=== PATIENT | female | born 1985 ===

== ENCOUNTER 2021-11-01 11:51 | Emergency (ER) | payer SELFPAY ==
[2021-11-01] MEDS ORDERED: IBUPROFEN 600 MG TAB PO ONE (14:47)
--- NOTE | 2021-11-01 14:52 | Emergency Department Report ---
- General Chief Complaint: Dyspnea/Respdistress Stated Complaint: DICKINSON, FEVER, CHILLS, COUGH Time Seen by Provider: 11/01/21 14:27 Source: patient Mode of arrival: Ambulatory Limitations: No Limitations - History of Present Illness Initial Comments: 36-year-old female who denies any significant past medical history presents to the ER today with complaints of URI symptoms. Patient states her symptoms started yesterday. She reports fever 103 for which she took Tylenol. She reports generalized body aches, mild cough, mild sore throat, rhinorrhea nasal congestion. She reports no chest pain or shortness of breath, GI or symptoms. She denies any apparent ill contacts or recent travel. She has not had a COVID-19 vaccine or flu vaccine. She denies tobacco use. MD Complaint: fever, cough, sore throat, nasal congestion -: days(s) (1) - Related Data Allergies Allergy/AdvReac Type Severity Reaction Status Date / Time No Known Allergies Allergy Unverified 11/01/21 12:26 ED Review of Systems ROS: Stated complaint: DICKINSON, FEVER, CHILLS, COUGH Other details as noted in HPI Comment: All other systems reviewed and negative Constitutional: fever ENT: throat pain, congestion, other (rhinorrhea) Respiratory: cough. denies: shortness of breath, SOB with exertion, SOB at rest, wheezing Cardiovascular: denies: chest pain, palpitations, dyspnea on exertion, edema, syncope, paroxysmal nocturnal dyspnea Gastrointestinal: denies: abdominal pain, nausea, diarrhea, constipation, hematemesis, hematochezia Genitourinary: denies: urgency, dysuria, frequency, hematuria, discharge, abnormal menses, dyspareunia Musculoskeletal: denies: back pain, joint swelling, arthralgia, myalgia Skin: denies: rash, lesions, change in color, change in hair/nails, pruritus Neurological: denies: headache, weakness, numbness, paresthesias, confusion, abnormal gait, vertigo Psychiatric: denies: anxiety, depression, auditory hallucinations, visual hallucinations, homicidal thoughts, suicidal thoughts Hematological/Lymphatic: denies: easy bleeding, easy bruising, swollen glands ED Physical Exam - General Limitations: No Limitations General appearance: alert, in no apparent distress, other (Mildly ill appearing but not toxic ) - Head Head exam: Present: atraumatic, normocephalic, normal inspection - Eye Eye exam: Present: normal appearance, PERRL, EOMI Pupils: Present: normal accommodation - ENT ENT exam: Present: normal exam, mucous membranes moist, TM's normal bilaterally - Neck Neck exam: Present: normal inspection, full ROM. Absent: meningismus - Respiratory Respiratory exam: Absent: normal lung sounds bilaterally, respiratory distress, wheezes, rales, rhonchi - Cardiovascular Cardiovascular Exam: Present: normal rhythm, tachycardia, normal heart sounds - GI/Abdominal GI/Abdominal exam: Present: soft. Absent: distended, tenderness, guarding, rebound - Neurological Exam Neurological exam: Present: alert, oriented X3, CN II-XII intact, normal gait - Psychiatric Psychiatric exam: Present: normal affect, normal mood - Skin Skin exam: Present: intact ED Course Vital Signs 11/01/21 11/01/21 12:29 15:58 Temperature 99.7 F H 98.0 F Pulse Rate 117 H 90 Respiratory 20 16 Rate Blood Pressure 107/46 125/83 [Right] O2 Sat by Pulse 97 97 Oximetry ED Medical Decision Making - Radiology Data Radiology results: report reviewed Patient: ASUNCION FELICIANO MR#: [id number] : 1985 Acct:[id number] Age/Sex: 36 / F ADM Date: 11/01/21 Loc: ED Attending Dr: Ordering Physician: URIEL MARIN Date of Service: 11/01/21 Procedure(s): XR chest routine 2V Accession Number(s): [id number] cc: URIEL MARIN Fluoro Time In Minutes: CHEST 2 VIEWS INDICATION / CLINICAL INFORMATION: cough, tachy, fever. COMPARISON: None available. FINDINGS: SUPPORT DEVICES: None. HEART / MEDIASTINUM: No significant abnormality. LUNGS / PLEURA: No significant pulmonary or pleural abnormality. No pneumothorax. ADDITIONAL FINDINGS: No significant additional findings. IMPRESSION: 1. No acute findings. Signer Name: Carlos Butler MD Signed: 11/01/2021 2:48 PM Workstation Name: [id number] Transcribed By: RAQUEL Dictated By: Carlos Butler MD Electronically Authenticated By: Carlos Butler MD Signed Date/Time: 11/01/211447 DD/ 47 TD/TT: - Medical Decision Making Rapid flu negative. Repeat VS improved. Patient not toxic or significantly ill appearing, he is well-hydrated. She is neurologically intact with a normal gait. She is not in any acute pain or res piratory distress. No meningeal signs on exam. Abdomen soft and nontender. Discussed results with patient The history, exam, diagnostic testing and current condition do not demonstrate an infectious process such as meningitis, severe pneumonia, retropharyngeal abscess, acute respiratory distress syndrome with hypoxia sepsis or other serious viral/bacterial infection requiring further testing, treatment, consultation or admission at this time. Recommend that she gets an outpatient COVID-19 test as this could be the results of her symptoms. In the meantime recommend treatment mainly geared to her symptoms. And drinking lots of fluids. Patient expressed understanding and agree with plan. Patient stable at time of discharge. Critical care attestation.: If time is entered above; I have spent that time in minutes in the direct care of this critically ill patient, excluding procedure time. ED Disposition Clinical Impression: Viral illness Disposition: 01 HOME / SELF CARE / HOMELESS Is pt being admited?: No Does the pt Need Aspirin: No Condition: Stable Instructions: Viral Illness, Adult Additional Instructions: Rapid flu and strep today were both negative. Your symptoms are likely related to a nonspecific viral illness but I do recommend that she get an outpatient COVID-19 test as this could be a cause of your illness. In the meantime drink lots of fluids. Take a multivitamin containing vitamin C zinc and vitamin D. Continue to monitor your temperature, if you do have fever or if you have pain you can alternate Tylenol with ibuprofen. You can take [id number] cough cold flu medication to help your symptoms. Follow-up closely with your primary care doctor. Return to the ER if your symptoms worsens in any way. Referrals: PRIMARY CARE, [Primary Care Provider] - 3-5 Days Forms: Work/School Release Form(ED) Time of Disposition: 15:23
[2021-11-01 15:59] VITALS: BP 125/83
== END 2021-11-01 16:09 | disposition home or self-care (01) ==
LOC: ED 11:51
DX: B34.9 Viral infection, unspecified (principal); J02.9 Acute pharyngitis, unspecified
CPT/HCPCS: 71046; 87400; 99284